=== PATIENT | male | born 1960 | race Two or more races ===

== ENCOUNTER → 2024-06-03 | Outpatient (CLI) | payer MEDICAID, SELFPAY ==
--- NOTE | 2024-06-03 09:00 | XR_ITS ---
Examination: Upper GI series with KUB Esophagram standard Fluoroscopy 15 spot fluoroscopic films of the esophagus and stomach Exam date and time: June 03, 2024 0851 hours INDICATIONS: Epigastric pain beginning 8 months ago FINDINGS: [employer] AP supine abdomen film demonstrates nonobstructive bowel gas pattern Patient swallowed thin barium with 13 spot films of the esophagus, stomach, duodenal bulb and duodenal sweep Fluoroscopy 0.20 minutes Isolated primary peristaltic esophageal waves Numerous secondary and tertiary esophageal contractions with esophageal spasm Moderate continuous gastroesophageal reflux Large esophageal hernia No stricture the gastroesophageal junction No gastric mass deformity or ulceration Duodenal bulb expands symmetrically Duodenal sweep and ligament of Treitz unremarkable IMPRESSION: Severe esophageal dysmotility including esophageal spasm Moderate continuous gastroesophageal reflux No constricting esophageal lesion No stricture at the gastroesophageal junction No gastric mass or deformity or ulceration Unremarkable duodenal bulb
== END | disposition home or self-care (01) ==
PROVIDERS: PCP Internal Medicine; Referring Provider Specialist; Visit Provider Specialist
DX: K21.9 Gastro-esophageal reflux disease without esophagitis (principal); K22.89 Other specified disease of esophagus
CPT/HCPCS: 74240; A4699